=== PATIENT | male | born 1970 ===

== ENCOUNTER 2024-08-28 09:03 | Outpatient (AMB) | payer OTHER, SELFPAY ==
[2024-08-28 09:20] VITALS: BMI 31.6
--- NOTE | 2024-08-28 09:20 | HO.SPINEOV ---
Vital Signs 08/28/24 09:20 Height 5 ft 10 in Weight 220 lb BMI 31.6 Intake Visit Reasons: low back pain Intake Note: Mr. Montanez is here today c/o Low back pain that radiates down the legs. Financial Sales Advisor Required: No Allergies No Known Allergies Allergy (Verified 08/28/24 09:21) Physical Exam Vital Signs: BMI result Body Mass Index 31.6 Assessment & Plan Assessment & Plan (1) Lumbar disc herniation with radiculopathy: Code(s): M51.16 - Intervertebral disc disorders with radiculopathy, lumbar region Category: Medical Plan Dear colleague On 08/28/2024, I saw Charlie Montanez, self-referred patient to the office today with a chief complaint of back pain radiating to the left leg. HPI: This 53-year-old male developed back pain in 2006. It started with an episode of low back pain that would last for few days. Over the years those episodes have become more frequent and intense. The back pain is mostly located on the left side. He had an MRI done in 2022 that showed lumbar degenerative disc disease L3-4 and L4-5 in a eccentric disc bulge towards the left side L4-5. More recently, the back pain has become constant and radiates down his left leg. Specifically to the left hip into the groin an outside of the left hip. He denies weakness or numbness. He still works as a customer training specialist. He went for chiropractic therapy which made his symptoms worse. He takes sujz-mqx-[id number] medication such as Tylenol and ibuprofen. The pain is interfering with his daily activities and work. He is looking for a permanent solution. PMH: Chronic sinusitis. Benign right bundle block which was discovered in 2011 during a physical. Cardiological evaluation, including stress test required no additional follow-ups or medication. Medications: Tylenol and ibuprofen Allergies: NKDA Social history: . Employed. Nonsmoker Physical Exam: Pleasant male. His upper body is leaning towards the right side on standing. Straight leg raise produces pain in the left thigh. Motor and sensory exam are intact. No pathological reflexes Radiological Studies: MRI done at [] on 09/20/2022 shows lumbar degenerative disc disease L3-4 and L4-5 with a disc bulge at L4-5 more eccentric towards the left side. The latest MRI of 03/28/2024 of [facility] shows a further progression of the disc herniation at L4-5 with now an extruded fragment compressing the left L5 nerve root. Impression/Plan: This patient is suffering from dominantly left-sided back pain with radiation in L5 dermatome caused by a progressive disc herniation L4-5 compressing the left L5 nerve root. In addition, he has lumbar degenerative disc disease L3-4 and L4-5. We discussed treatment options. The progression of the symptoms are compatible with the progression seen on the MRI scans and therefore I recommended a lumbar microdiskectomy L4-5, left side. I am hopeful that this will also address his left-sided back pain as this is most likely a radicular back pain. A fusion surgery is not indicated at this time. He wants to proceed. He will get preoperative clearance from his primary care physician. He is scheduled for 10/29/2024. Thank you for allowing me to participate in your patients care. total time spent was 50 minutes in counseling ,coordination of plan, personal review of imaging, surgical decision making and subsequent plan Trent Cabrales MD, PhD Spine Fellowship Trained Neurosurgeon Director, [facility] Coding Level of Care Code New Pt Level 4 (60039) Diagnoses Lumbar disc herniation with radiculopathy M51.16
--- OUTSIDE RECORDS SUMMARY | 2024-08-28 09:41 | XMS_ITS ---
Author Organization [facility] Health Services Address [address] [place] [address] Care Team Providers Care Felt Puller Name Role Phone Gris Vu Primary Care Provider [phone] REASON FOR VISIT MRI Results: call request~ Social History Sex Assigned At : Social History Observation Description Sex Assigned At Male Encounters Encounter Location Date Provider Diagnosis [facility] [address] [place], [place] [id number] 04/03/2024 Gris Vu Plan Of Treatment No Information Progress Notes * Blayne ELLIOTTOB:1970 (53 yo M)Acc No.[id number]:04/03/2024 Patient:?ELILOTTConnor RENO :1970???Age:53 Y???Sex:Male Address:[address] [place] [address], [address] * true * Date:? Generated for Printi aimee/Micha/eTransmitting on:?08/28/2024 09:41 AM EDT
--- OUTSIDE RECORDS SUMMARY | 2024-08-28 09:41 | XMS_ITS ---
Author Organization [facility] Health Services Address [address] [place] [address] Care Team Providers Care Tongue Lining Stitcher Name Role Phone Gris Vu Primary Care Provider REASON FOR VISIT MRI - printed reports Social History Sex Assigned At : Social History Observation Description Sex Assigned At Male Encounters Encounter Location Date Provider Diagnosis [facility] [address] [place], [place] [id number] 08/24/2024 Gris Vu Plan Of Treatment No Information Progress Notes * Blayne ELLIOTTOB:1970 (53 yo M)Acc No.[id number]:08/24/2024 Patient:?ELLIOTTConnor :1970???Age:53 Y???Sex:Male Address:[address] [place] [address], [address] * true * Date:? Generated for Singhi aimee/Micha/eTransmitting on:?08/28/2024 09:41 AM EDT
--- OUTSIDE RECORDS SUMMARY | 2024-08-28 09:42 | XMS_ITS | Data Portability ---
Author Organization [facility] [place] Address [address] [place] [address] Assessment No assessment recorded. Plan of Treatment Reminders Order Date Submit Date Provider Last Modified By Organization Details Last Modified Time Details Appointments None recorded. Lab urinalysis , dipstick, auto [email or web address] [place] [address], [address] [place] [address], [id number], 8 11:13:41 ferritin, serum or plasma 2017 018 [facility], [address] [place] [address], [address], 8 12:45:52 lipid panel, blood 2017 018 [email or web address] [facility], [address] [place] [address], [address], 8 12:45:52 CMP, serum or plasma 2017 018 [email or web address] Not available 8 12:45:52 CBC w/ diff 2017 018 [email or web address] Not available 8 12:45:52 Referral physical therapist referral 2017 018 [email or web address] [facility], [address] [place], [address], 8 12:54:43 Procedures None recorded. Surgeries None recorded. Imaging electrocar diogram 2017 018 [facility], [address] [place], [address], 8 18:09:38 XR, thoracolum bar spine 2017 018 [facility] ([facility]), [address] [place], [address], 8 10:00:16 Medication Orders ketorolac 30 mg/mL (1 mL) injection solution 2017 018 [email or web address] Not available 8 17:50:46 ketorolac 10 mg tablet 2017 018 [id number], [address] [place], [place], [id number], 8 14:55:09 metaxalone 800 mg tablet 2017 018 [id number], [address] [place], [place], [id number], 8 14:50:15 Patient TargetsNo targets recorded. Patient Instructions Encounter Date Encounter Id Patient Instructions Last Modified By Organization Details Last Modified Time 09/27/2017 [id number] restless legs syndrome: care instructions [email or web address] Not available 09/27/2017 14:56:33 10/11/2017 [id number] We will call if there is anything abnormal about your lab results. [email or web address] Not available 10/11/2017 11:14:13 Reason for Referral Referring Physician: Alison nazario, Internal Medicine, Encounter Date: 09/27/2017 Results Created Date Observation Date Name Description Value Unit Range Abnormal Flag Note LastModifiedBy Organization Detail LastModifiedTime 10/12/19 18 10/11/2017 urina lysis , dipst ick, auto Leukocytes Negati ve Not Available [facility] [address] [place], [address], 10/11/2017 10:48:30 10/12/19 18 10/11/2017 urina lysis , dipst ick, auto Nitrite negati ve Not Available [address], [address], 10/11/2017 10:48:30 10/12/19 18 10/11/2017 urina lysis , dipst ick, auto Urobilinogen .2 Not Available [facility] [address], [address], 10/11/2017 10:48:30 10/12/19 18 10/11/2017 urina lysis , dipst ick, auto Protein Trace Not Available [address], [address], 10/11/2017 10:48:30 10/12/19 18 10/11/2017 urina lysis , dipst ick, auto pH 6.0 Not Available [address], [address], 10/11/2017 10:48:30 10/12/19 18 10/11/2017 urina lysis , dipst ick, auto Blood Negati ve Not Available [address], [address], 10/11/2017 10:48:30 10/12/19 18 10/11/2017 urina lysis , dipst ick, auto Specific [place] 1.030 Not Available [address], [address], 10/11/2017 10:48:30 10/12/19 18 10/11/2017 urina lysis , dipst ick, auto Ketone Negati ve Not Available [address], [address], 10/11/2017 10:48:30 10/12/19 18 10/11/2017 urina lysis , dipst ick, auto Bilirubin Small Not Available [address], [address], 10/11/2017 10:48:30 10/12/19 18 10/11/2017 urina lysis , dipst ick, auto Glucose 100 Not Available [address], [address], 10/11/2017 10:48:30 10/12/19 18 10/11/2017 urina lysis , dipst ick, auto Appearance Clear Not Available [facility] [address] [place], [address], 10/11/2017 10:48:30 10/12/19 18 10/11/2017 urina lysis , dipst ick, auto Color Dark Yellow Not Available [address], [address], 10/11/2017 10:48:30 10/03/19 18 10/02/2017 XR, thora colum bar spine No observ ation record ed. [email or web address] Not Available 2017 08:02:39 Result Notes None recorded. Problems Name Problem SNOMED Code Status Onset Date Resolution Date Notes Provider Name and Address Organization Details Recorded Time Low back pain 993868908 Active 018 L[facility] 8 14:10:30 Sinusitis 02144676 Active 018 Luluher [facility] 8 14:10:39 Problem Notes None recorded. Procedures Surgical History None recorded. Imaging Results Imaging Date Name Status LastModified by Organization Details LastModified Time 10/02/2017 XR, thoracolumbar spine completed [email or web address] Information not available 10/07/2017 08:02:39 Procedure Notes None recorded. Medical Equipment None Reported. Allergies No known drug allergies Medications Name Sig Start Date Stop Date Status Note LastModified by Organization Details LastModified Time ketorolac 30 mg/mL (1 mL) injection solution Inject 1 mL every day by intramusc ular route for 1 day. 2017 active Not Available Not Available Not Avai lable ketorolac 10 mg tablet Take 1 tablet every 6 hours by oral route for 5 days. active Not Available Not Available No t Available azelastine 137 mcg (0.1 %) nasal spray 09/27 completed Not Available Not Available Not Available methylpredn isolone 4 mg tablets in a dose pack 09/27 completed Not Available Not Available Not Available amoxicillin 875 mg-potassiu m clavulanate 125 mg tablet 09/27 completed Not Available Not Available Not Available metaxalone 800 mg tablet Take 1 tablet 3 times a day by oral route for 10 days. active Not Available Not Available No t Available Aleve prn active Not Available Not Availa ble Not Available ibuprofen prn active Not Available Not Stacy ilable Not Available Tylenol prn active Not Available Not Avail able Not Available Vitals Date Recorded Body height Body mass index (BMI) Body weight Body temperature Oxygen saturation Oxygen saturation in Arterial blood by Pulse oximetry Heart rate Systolic blood pressure Diastolic blood pressure Provider Name and Address Organization Details Last Updated DateTime 8 172.97 cm 32.1 kg/m2 10735.1 5 g 98.2 [degF] 98 % 98 % 78 /min 117 mm[Hg] 72 mm[Hg] [facility] 8 14:08:09 Date Recorded Body height Body mass index (BMI) Body weight Body temperature Oxygen saturation Oxygen saturation in Arterial blood by Pulse oximetry Heart rate Systolic blood pressure Diastolic blood pressure Provider Name and Address Organization Details Last Updated DateTime 8 172.97 cm 32 kg/m2 17375.9 9 g 98.2 [degF] 96 % 96 % 79 /min 114 mm[Hg] 80 mm[Hg] [facility] 8 10:31:45 Social History Question Answer Notes LastModified by Organizat ion Details LastModified Time Tobacco Smoking Status Never Smoker Not Available [facility] 04/12/2020 03:22:03 Do You Have An Advance Directive? No [id number] Information not available 04/12/2020 What Is Your Level Of Alcohol Consumption? None [id number] Information not available 04/12/2020 What Is Your Level Of Caffeine Consumption? Moderate [id number] Information not available 04/12/2020 How Much Tobacco Do You Chew? None [id number] Information not available 04/12/2020 Commercial Sex Work No [email or web address] Information not available 09/27/2017 Which Illicit Or Recreational Drugs Have You Used? None [id number] Information not available 04/12/2020 Have You Directly Handled Bats, Rodents, Or Primates From Ebola Endemic Areas? No [id number] Information not available 04/12/2020 Have You Processed Blood Or Body Fluids From An Ebola Virus Disease Patient Without Appropriate PPE? No [id number] Information not available 04/12/2020 Have You Had Household Contact With An Ebola Virus Disease Patient? No [id number] Information not available 04/12/2020 Have You Had Direct Contact With A Body In An Ebola-affected Area Without Appropriate PPE? No [id number] Information not available 04/12/2020 Have You Had Percutaneous (e.g. Needle Stick) Or Mucous Membrane Exposure To Blood Or Body Fluids From An Ebola Virus Disease Patient? No [id number] Information not available 04/12/2020 Have You Had Other Close Contact With An Ebola Virus Disease Patient In Health Care Facilities Or Community Settings? No [id number] Information not available 04/12/2020 Do You Reside In Or Have You Traveled To An Area Where Ebola Virus Transmission Is Active? 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 No [email or web address] Information not available 09/27/2017 High Number Of Sexual Partners No [email or web address] Information not available 09/27/2017 Legally Blind In One Or Both Eyes? No Information no t available 09/27/2017 Marital Status [email or web address] Informatio n not available 09/27/2017 What Was The Date Of Your Most Recent Tobacco Screening? 10/11/2017 [id number] Information not available 04/12/2020 Mother With HIV? No [email or web address] Informat ion not available 09/27/2017 Seat Belts Used Routinely Yes [email or web address] Information not available 09/27/2017 Sexual Partner Has HIV? No Information not available 09/27/2017 Sexual Partner Uses IV Drugs? No Information not available 09/27/2017 Smoke Alarm In Home Yes [email or web address] Information not available 09/27/2017 General Stress Level Low [email or web address] Information not available 09/27/2017 Do You Use Sunscreen Routinely? Yes [id number] Information not available 04/12/2020 Have You Used IV Drugs? No [id number] Information not available 04/12/2020 Sex: Unknown Functional Status Question Answer Note LastModified by Organization D etails LastModified Time Are you able to walk? YESWOREST [id number] Information not available 04/12/2020 What is your exercise level? Moderate [id number] Information not available 04/12/2020 Mental Status None recorded. Family History Relationship Description Onset Age of this Age Resolved Age Notes LastModified by Organization Details LastModified Time Maternal Grandfather Alcohol abuse [email or web address] Not available 2017 12:54:00 Maternal Grandfather Pulmonary embolism [email or web address] Not available 2017 12:54:25 Maternal Grandmother Myocardial infarction [email or web address] Not available 09/27 12:54:50 Notes:CAD- paternal grandmot her, paternal grandfather throat [place]-maternal aunt Medical History No medical history recorded. Past Encounters Encounter ID Performer Location Encounter Start Date Encounter Closed Date Diagnosis/Indication Diagnosis SNOMED-CT Code Diagnosis ICD10 Code Diagnosis Note [id number] [address] 09/27/2017 14:00:54 09/27/2017 15:14:47 Spasm of back muscles 191967146 M62.830 Hypertriglyceridemia 302 200914 E78.1 Adult [facility] th examination 778265151 Z00.00 Chronic back pain 997638 002 M54.9 You will get a call from [facility] to schedule an appt. Restless legs 01559786 G 25.[id number] [address] 10/11/2017 10:16:50 10/11/2017 11:19:52 Adult health examination 292558013 Z00.00 Proteinuria 14779189 R80 .9 please return in 2-3 weeks for a repeat UA Glycosuria 53663925 R81 Health Concerns Section Related Observation LastModified by Organization Detai ls LastModified Time None Recorded Concern Status LastModified by Organization Details LastModified Time None Recorded Advance Directives Directive N: Payers Encounter Date Sequence Insurance Name Policy Number Policy Fan Covered Member ID Fan Member ID Guarantor Name 09/27/2017 1 [employer] - CHOICE (POS II) [id number] Connor Montanez [id number] 10/11/2017 1 [employer] - CHOICE (POS II) [id number] Connor Montanez [id number] Notes Date Note Type Note Provider Name and Address Organization Details Recorded Time 09/27/2017 text/html Back PainReporte d bypatient.Location :pain radiating to the legs; to L groin Severity:improving Duration:chronic; for 15 years Onset/Timing:recur rent episode; 2 weeks ago shoveled snow. Context:overuse; prior back problems Alleviating Factors:nothing Aggravating Factors:lifting, walking a lot, sitting in car for a long period Associated Symptoms:no weak limbs; no numbness of the legs/feet; no tingling; no chills; no night sweats; no gait instability; no bowel/bladder symptoms Previous Injury:previous injury to lumbar region: ___ years ago; after running on stone Prior Imaging:X-ray 1)Sinusitis: He used to be a heavy drinker of Diet Pepsi. Notices when he had artificial sweeteners, the back of his throat would swell. His sinuses cleared up once he stopped drinking Diet Coke. 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 Nasal steroids irritate polyps. Acute, recurrent low back pain: 2)Tried chiropractic without any relief. He had xrays in the past, approx. 3 years ago. No DDD was found. Feels muscular to him. Pain worsened with massage from his . Alternating ibuprofen and Aleve with tylenol. Reports some restless leg.He trained as an RN, now a computer technology trainer. Today he reports that he is getting over a cold. Alison cordero, [facility] 09/27/2017 18:08:10 10/11/2017 text/html Last eye exam: 4 months ago Last dental exam: goes every 6 months Seatbelts/helmets: yes Diet: high protein, low carbs, salads, goes back and forth on sweets. Very little alcohol, very limited soda Exercise: very little. Takes steps, armstrong away from doors PHQ-2: neg x 2 Proteinuria has been present in the past. Alison cordero [facility] 10/15/2017 16:36:24
--- OUTSIDE RECORDS SUMMARY | 2024-08-28 09:42 | XMS_ITS ---
Author Organization [facility] Health Services Address [address] [place] [address] Care Team Providers Care Accounting Lecturer Name Role Phone Gris Vu Primary Care Provider REASON FOR VISIT CPE, no colonoscopy on file, only covid vax on file Social History Sex Assigned At : Social History Observation Description Sex Assigned At Male Encounters Encounter Location Date Provider Diagnosis [facility] [address] [place], [place] [id number] 07/29/2024 Gris Vu Screening for prosta te cancer Z12.5 and Encounter for general adult medical examination without abnormal findings Z00.00 Assessments Encounter Date Diagnosis (ICD Code) Assessment Notes Treatment Notes Treatment Clinical Notes Section Notes 07/29/2024 Screening for prostate cancer (ICD-10 - Z12.5) 07/29/2024 Encounter for general adult medical examination without abnormal findings (ICD-10 - Z00.00) Plan Of Treatment No Information Progress Notes * [place] ELLIOTTinDOB:1970 (53 yo M)Acc No.[id number]:07/29/2024 UNLOCKED PROGRESS NOTE Progress Notes Patient:?Connor ELLIOTT Provider:?Gris Vu APRN :1970???Age:53 Y???Sex:Male Kerwin e:07/29/2024 Address:[address] [place] [id number] Subjective: * Chief Complaints: * ???1. CPE. 2. No colonoscopy on file, only covid vax on file. * ROS:?General/Constitutional:?Patient denies?fever, chills, night sweats, weight loss, change in heat or cold tolerance, fatigue, or insomnia.?ENT:?Patient denies?eye or ear pain, visual change, hearing loss, tinnitus, vertigo, or frequent headaches.?Respiratory:?Patient denies?frequent cough, sputum production, shortness of breath at rest, or wheezing.?Cardiovascular:?Patient denies?chest pain, change in exercise tolerance, palpitations, or edema.?Gastrointestinal:?Patient denies?difficulty swallowing, nausea, vomiting, heartburn, change in bowel habits, abdominal pain, or signs of rectal bleeding.?Genitourinary:?Patient denies?painful urination, worsening nocturia or frequency, or incontinence.?Men Only:?Patient denies?hestitancy, slow stream, worsening nocturia or frequency, or difficulty achieving or maintaining an erection.?Hematology:?Patient denies?excessive bruising or other unexplained bleeding.?Skin:?Patient denies?a worrisome skin lesion, new rash, or pruritis.?Musculoskeletal:?Patient denies?joint swelling or new joint pain.?Neurologic:?Patient denies?weakness, paresthesias, transient visual loss, change in balance, difficulty talking, or memory problems.?Psychiatric:?Patient denies?excessive anxiety or a persistently depressed mood.? * Medical History:? Objective: * Vitals:? * Examination: ???General Examination: ?General?alert, oriented and attentive, in no acute distress.?SKIN?no suspicious lesions, no rashes, warm and dry.?EYES:?no scleral icterus, no conjunctival pallor, no ocular injection.?EARS:?auditory canals clear, tympanic membranes unremarkable.?NOSE:?nasal mucosa without visible lesion, pallor, or polyp.?ORAL CAVITY:?mucosa moist, gums normal, no pharyngeal lesions.?NECK/THYROID:?thyroid not enlarged and without palpable nodule, no neck mass.?LYMPH NODES:?no palpable cervical or supraclavicular adenopathy.?HEART:?regular rate and rhythm; no murmurs, rubs, or gallops.?LUNGS:?good air movement, clear to auscultation bilaterally.?ABDOMEN:?bowel sounds unremarkable, no bruit, soft, nontender, nondistended, no hepatosplenomegaly.?RECTAL:?no external hemorrhoids, normal tone, no masses palpable, prostate not enlarged and without nodule.?MALE GENITOURINARY:?no hernia, no testicular mass or scrotal mass, no penile lesions or discharge.?EXTREMITIES:?warm and dry, no clubbing, cyanosis, or edema, nails unremarkable.?PERIPHERAL PULSES:?2+ posterior tibial and dorsalis pedis pulses bilaterally.?MUSCULOSKELETAL:?no spinous tenderness, no swelling or deformity.?NEURO:?speech normal, no facial weakness, tongue midline, strength grossly normal in both upper and lower extremities, gait normal, 2+ KJ.?PSYCH:?cooperative with exam, good eye contact, judgement and insight good, mood congruous, affect full.? Assessment: * Assessment: 1.?Screening for prostate ca ncer - Z12.5???2.?Encounter for general adult medical examination without abnormal findings - Z00.00??? Plan: * Treatment: * Procedure Codes:?G0102 DIGIT AL RECTAL EXAM * Preventive Medicine:? ??COUNSELING:?Diet:?Your diet should include plenty of fruit and vegetables and whole grains. Meat and high fat dairy should be limited. Fish, nuts, and olive oil are good fats to include in your diet.?Exercise:?You should exercise for at least 30 continuous minutes, at least 3 or 4 times per week. Consider some regular weight lifting also.?Health:?Talk to your provider about regular screening for colon cancer.?Injury prevention:?Make sure your home is equipped with smoke and carbon monoxide detectors. Seat belts (and motorcycle helmets if indicated) save lives.?Sunscreen:?Regular use of hats and sunscreen is your best defense against skin cancer and aging of the skin.? * * The named appointment provid er may or may not be the originator of this progress note, and it is not deemed complete until electronically signed by the appointment provider. Sign off status: Pending * Provider:?Gris Vu APRN Date:?2024 Generated for Gareth yu/Micha/Ignacioitting on:?08/28/2024 09:41 AM EDT History and Physical Notes * Examination Category Sub-Category Detail Notes Category Not es General Examination General alert, orien claudia and attentive, in no acute distress EYES: no scleral icterus, no conjunctival pallor, no ocular injection EARS: auditory canals kacy r, tympanic membranes unremarkable NOSE: nasal mucosa without visible lesion, pallor, or polyp NECK/THYROID: thyroid not enlarged and without palpable nodule, no neck mass HEART: regular rate and rhy thm; no murmurs, rubs, or gallops LUNGS: good air movement, c lear to auscultation bilaterally ABDOMEN: bowel sounds unremar kable, no bruit, soft, nontender, nondistended, no hepatosplenomegaly NEURO: speech normal, no fa cial weakness, tongue midline, strength grossly normal in both upper and lower extremities, gait normal, 2+ KJ SKIN no suspicious lesion s, no rashes, warm and dry EXTREMITIES: warm and dry, no clu bbing, cyanosis, or edema, nails unremarkable PERIPHERAL PULSES: 2+ posterior tibial and dorsalis pedis pulses bilaterally MUSCULOSKELETAL: no spinous tendernes s, no swelling or deformity MALE GENITOURINARY: no hernia, no testic ular mass or scrotal mass, no penile lesions or discharge LYMPH NODES: no palpable cervical or supraclavicular adenopathy RECTAL: no external hemorrho ids, normal tone, no masses palpable, prostate not enlarged and without nodule PSYCH: cooperative with exa m, good eye contact, judgement and insight good, mood congruous, affect full ORAL CAVITY: mucosa moist, gums n ormal, no pharyngeal lesions
--- OUTSIDE RECORDS SUMMARY | 2024-08-28 09:42 | XMS_ITS | Patient Health Record ---
Author Organization [facility] Health Services Address [address] [place] [address] Care Team Providers Care X Ray Technician Name Role Phone Gris Vu Primary Care Provider [phone] Allergies Allergen (clinical drug ingredient) Drug/Non Drug Allergy documented on EMR Reaction Allergy Type Onset Date Status Seasonal IC sinus dng Drug Allergy Activ e Cat dander Cat Dander Unknown Allergy Active Dust Mites Unknown Allergy Active Results Component Value Reference Range Notes MRI LUMBAR SPINE W/O CONTRAS T Reviewed date:08/24/2024 11:21:04 AM Interpretation: Performing Lab: Notes/Report: MRI LUMBAR SPINE W/O CONTRAS T Reviewed date:08/24/2024 11:21:04 AM Interpretation: Performing Lab: Notes/Report: MRI BRAIN W AND W/O CONTRAST Reviewed date:08/24/2024 11:21:33 AM Interpretation: Performing Lab: Notes/Report: Reason For Referral No Information Medications Medication SIG (Take, Route, Frequency, Duration) Notes Start Date End Date Status Cyclobenzaprine HCl 10 MG 1 tablet at be dtime as needed Orally Once a day 01/28/2024 Active Aleve 220 MG 2 tablet with food or milk as needed Orally at bedtime Active Ketorolac Tromethamine 10 MG 1 tablet wi th food or milk as needed Orally every 6 hrs 09/07/2022 Not-Taking Gabapentin 300 MG 1 capsule Orally Once a day for 30 days 02/14/2024 Active methylPREDNISolone 4 MG as directed on package Orally daily for 6 days 01/24/2024 Not-Taking Tylenol 325 MG 3 tablet as needed Orally 3-4 times per day Active Flonase 50 MCG/ACT 1 spray in each nostril Nasally Once a day as needed for 90 days Active Ibuprofen 600 MG 1 tablet with food or milk as needed Orally Every 4 hours Active Immunizations Vaccine Route Administration Date Status Comme nts Covid-19 Pfizer Age 12+ Unknown 09/08/2020 Administered Covid-19 Pfizer Age 12+ Unknown 10/08/2020 Administered Social History Tobacco Use: Social History Observation Description Date Details (start date - stop date) Never Smoker NA - NA Sex Assigned At : Social History Observation Description Sex Assigned At Male Alcohol Screen Question Answer Notes Did you have a drink containing alcohol in the p ast year? 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) Active confirmed Problem 883452704 NSAID long-term use (Z79.1) Active confirmed Problem 91585466 Chronic pansinusitis (J32.4) Active confirmed ENT referral pending Vital Signs Respiratory Rate 18 /min 02/14/2024 José Fulton RN Oximetry 98 % 01/24/2024 Caterina VALLEJO Blood pressure diastolic 76 mm Hg 02/14/2024 José Fulton RN Height 68.5 in 02/14/2024 José Fulton RN Blood pressure systolic 122 mm Hg 02/14/2024 José platt RN Weight 221.8 lbs 02/14/2024 José Fulton RN BMI 33.23 kg/m2 02/14/2024 José Fulton RN Encounters Encounter Location Date Provider Diagnosis [address] [place], [place] [id number] 01/24/2024 Gris Vu 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 ; Nasal polyps J33.9 ; Chronic pansinusitis J32.4 and BMI 32.0-32.9,adult Z68.[address] [place], [place] [id number] 02/14/2024 Grisjeniffer Vu Acute left-sided low back pain with left-sided sciatica M54.42 [facility] [address] [place], [place] [id number] 01/28/2024 Gris Krystinl [facility] [address] [place], [place] [id number] 02/12/2024 Gris Kyrieseemal [facility] [address] [place], [place] [id number] 04/03/2024 Gris Krystinolamide [facility] [address] [place], [place] [id number] 08/24/2024 Gris Kyrieana luisa Assessments Encounter Date Diagnosis (ICD Code) Assessment Notes Treatment Notes Treatment Clinical Notes Section Notes 01/24/2024 Nasal polyps (ICD-10 - J33.9) 01/24/2024 Facial palsy (ICD-10 - G51.0) 02/14/2024 Acute left-sided low back pain with left-sided sciatica (ICD-10 - M54.42) 01/24/2024 Chronic pansinusitis (ICD-10 - J32.4) 01/24/2024 BMI 32.0-32.9,adult (ICD-10 - Z68.32) Plan Of Treatment No Information Insurance Providers Payer Name Payer Address Payer Phone Subscriber Number Group Number Insured Name Patient Relationship to Insured Coverage Start Date Coverage End Date [employer] PPO [address] [place] [address] [id number] Connor Montanez Self - patient is the insured Medical (General) History Medical History History ICD Code Multiple sinus infections [place] palsy x 3 Hep A, from [place] RBBB Low back pain Surgical History Surgery Date(Month/Year)
== END 2024-08-28 11:06 | disposition home or self-care (01) ==
LOC: HO.HNS 09:03
PROVIDERS: Visit Provider Neurological Surgery
DX: M51.16 Intervertebral disc disorders with radiculopathy, lumbar region (principal)
CPT/HCPCS: 99204